=== PATIENT | female | born 2005 | race Caucasian/White ===

== ENCOUNTER 2024-07-10 19:26 | Outpatient (REF) | payer BC, OTHER, SELFPAY ==
--- NOTE | ~2024-07-10 | MR_ITS ---
CLINICAL HISTORY: PAIN MR of the right wrist without contrast. No comparison. Findings: There is edema in the proximal pole of the scaphoid suspicious for a subtle fracture. There is ill-defined marrow edema extending more distally in the scaphoid. There is also a focal area of edema or cystic change in the trapezoid that is nonspecific but could represent a bone contusion. Carpal alignment is normal. There is a possible small tear of the scapholunate ligament although this is not definite. The flexor extensor tendons are intact. The carpal tunnel and median nerve are unremarkable. Dorsal to the capitate there is a 4 mm ganglion. The triangular fibrocartilage is intact. There is mild ill-defined soft tissue edema dorsal to the scaphoid. Impression: Abnormal appearance of the proximal scaphoid suspicious for a subtle fracture recommend follow-up to assess for interval change and exclude early AVN. Focal edema or cystic change in the trapezoid is nonspecific but could represent a small bone contusion. Possible small tear of the scapholunate ligament. Small ganglion dorsal to the capitate. This document has been electronically signed by: Rico Magana MD on 07/10/2024 20:51:25
--- OUTSIDE RECORDS SUMMARY | 2024-07-10 19:38 | XMS_ITS | Continuity of Care Document ---
Author Organization [facility] Address [address] [place] [id number] Phone Care Team Providers Care Carver And Checkerer Specials Name Role Phone BREANNA LIN OD Unavailable Unavailable Allergies, Adverse Reactions, Alerts Substance Reaction Status Criticality No Known Allergies Active No Inform ation Medications Medication Instructions Dosage Effective Dates (start - stop) Status Comments Zyrtec 10 mg tablet take 1 tablet by ora l route every day 10 MG - Active Flovent Diskus 100 mcg/actuation powder for inhalation inhale 1 puff by inhalation route 2 times every day - Active albuterol sulfate 2 mg tablet take 1 tablet by oral route 3 times every day 2 MG - Active Procedures Procedure Date REFRACTION EYE EXAM & TREATMENT Eyeglasses delux frames Lens spher single plano 4.00 Tax REFRACTION EYE EXAM & TREATMENT REFRACTION EYE EXAM, NEW PATIENT Advance Directives Directive Yes / No Effective Date File Name No Information Encounters Encounter Description Practice Location Reason(s) For Visit Diagnoses Date Provider Providers Copied on Encounter [facility], [address] [place] [address], [id number], [place] tel:[phone] [facility] myopia (chief complaint) Myopia, bilateral RILEY CARLOS. [address] [place] [address], [id number]. tel:[phone] [facility], [address] [place] [address], [id number], tel:[phone] [facility] No Information RILEY BREANNA. [address] [place] [address], [id number]. tel:[phone] [facility], [address] [place] [address], [id number], tel:[phone] [facility] No Information [facility]. [address] [place] [address], [id number]. tel:[phone] [facility], [address] [place] [address], [id number], [place] tel:[phone] [facility] myopia (chief complaint) Myopia, bilateral RILEY BREANNA. [address] [place] [address], [id number]. tel:[phone] [facility], [address] [place] [address], [id number], [place] tel:[phone] [facility] decreased vision (chief complaint) Myopia, bilateral RILEY BREANNA. [address] [place] [address], [id number]. tel:[phone] Family History Family Member Type Diagnosis Age At Onset No Information Payers Payer name Insurance type Covered libertarian ID Authoriza tion(s) No Information Social History Type Description Quantity Date Captured Comments Alcohol Use Details Unknown Caffeine Use Details Unknown Tobacco Use Status Current non-smoker 18 Smoking Status Never smoker Non-Smoking Tobacco Use Details : No Details Available : No Details Available Sex Female Chief Complaint And Reason For Visit From encounter dated '11/19/2018 13:00'. myopia (chief complaint). Description: The 13 year 9 month old female presents for evaluation of myopia in the right eye and left eye. It has been one year since last exam. Reason For Referral Reason For Referral No Information History Of Present Illness Encounter Date Complaint History Of Prese nt Illness myopia The 13 year 9 mo nth old female presents for evaluation of myopia in the right eye and left eye. It has been one year since last exam. myopia The 12 year 10 m onth old female presents for evaluation of myopia in the right eye and left eye. It has been about three years since last exam. Pt has not really noticed any change in vision. decreased vision The 10 year old female presents for evaluation of decreased vision in the right eye and left eye. The onset was gradual. It affects distance vision. Pt has trouble seeing the board at school. She needs to move forward to see better up close. Functional Status Date Functional Assessmen t No Information Instructions Date Instruction Additional Infor mation Impression/Plan Related to Myopi a, bilateral Impression/Plan - gave new spect acle Rx Related to Myopia, bilateral Impression/Plan - Glasses for sc hool and far Related to Myopia, bilateral Assessments Type Assessment Date assessment Myopia, bilateral impression Myopia, bilateral: H52.13 Patient Care Teams Name Effective Dates (start - stop) Status Members No Information
== END 2024-07-10 19:27 | disposition home or self-care (01) ==
LOC: HO.MRI 19:26
PROVIDERS: Visit Provider Student in an Organized Health Care Education/Training Program
DX: M25.531 Pain in right wrist (principal)
CPT/HCPCS: 73221

== ENCOUNTER → 2024-07-10 19:40 | Outpatient (BNV) | payer BC, OTHER, SELFPAY | PROVIDERS: Visit Provider Radiology Diagnostic Radiology | DX: M25.531 Pain in right wrist (principal) | CPT/HCPCS: 73221 ==